=== PATIENT | female | born 1975 | race Two or more races ===

== ENCOUNTER 2020-01-17 19:55 | Emergency (ER) | payer MEDICAID, OTHER ==
[~2020-01-17] VITALS: Ht 165.1 cm; Wt 77.1 kg
--- NOTE | 2020-01-17 20:05 | NUR ---
URINE COLLECTED AND SENT TO LAB
--- NOTE | 2020-01-17 20:21 | NUR ---
SERVICE LEARNING COORDINATOR AT BEDSIDE FOR BLOOD DRAW
--- NOTE | 2020-01-17 20:27 | NUR ---
US RAVEN DIA, IS AT THE BEDSIDE.
[2020-01-17 20:28] LABS: EOSINOPHILS % (AUTO) 1.7 % (0.0-6.0); HEMATOCRIT 33 % (33-45); HEMOGLOBIN 10.9 g/dL (11.5-14.8); LYMPHOCYTES # (AUTO) 2.1 /CMM (0.8-4.8); LYMPHOCYTES % (AUTO) 40.5 % (20.0-44.0); MEAN CORPUSCULAR HGB CONC 33 g/dl (31.0-36.0); MEAN CORPUSCULAR VOLUME 77 fL (82-100); MONOCYTES # (AUTO) 0.5 /CMM (0.1-1.30); MONOCYTES % (AUTO) 9.3 % (2.0-12.0); NEUTROPHILS # (AUTO) 2.5 /CMM (1.8-8.9); NEUTROPHILS % (AUTO) 48.5 % (43.0-81.0); PLATELET COUNT (AUTO) 129 /CMM (150-450); RED BLOOD CELL COUNT(AUTO) 4.36 MIL/uL (4.0-5.2); WHITE BLOOD COUNT (AUTO) 5.1 K/uL (4.3-11.0)
[2020-01-17 20:29] LABS: APPEARANCE,URINE Clear (CLEAR); BILIRUBIN,URINE Negative (NEGATIVE); BLOOD, URINE Large Ery/uL (NEGATIVE); COLOR,URINE Pink (YELLOW); KETONES,URINE Negative (NEGATIVE); LEUKOCYTE ESTERASE ,URINE Negative (NEGATIVE); NITRITE, URINE Negative (NEGATIVE); PROTEIN,URINE Negative (NEGATIVE); UGLUCOSE Negative (NEGATIVE); UROBILINOGEN,URINE 0.2 EU/dL (0.2)
[2020-01-17 20:40] LABS: BACTERIA,URINE Rare /HPF (None Seen); RBC,URINE 21-50 /HPF (0-2); SQUAMOUS EPITHELIAL CELL,UR Few /HPF (None Seen); WBC,URINE NONE SEEN /HPF (0-3)
--- NOTE | 2020-01-17 20:44 | NUR ---
US IS FINISHED.
--- NOTE | 2020-01-17 21:39 | NUR ---
DR LOO IS AT THE BEDSIDE.
[2020-01-17 21:50] VITALS: BP 148/87
== END 2020-01-17 21:50 | disposition home or self-care (01) ==
LOC: ER 19:58
DX: N93.8 Other specified abnormal uterine and vaginal bleeding (principal); Z98.890 Other specified postprocedural states
CPT/HCPCS: 36415; 76856-TC; 81000-TC; 84702-TC; 84703-TC; 85025-TC

== ENCOUNTER 2020-11-20 20:32 | Emergency (ER) | payer OTHER ==
[~2020-11-20] VITALS: Ht 165.1 cm; Wt 72.6 kg
--- NOTE | 2020-11-20 20:35 | NUR ---
CITLALY C/O VAGINAL BLEEDING X1 MONTH. PT STATES SHE IS CURRENTLY TAKING IRON MEDICATION. PT STATES SHE USES APPROX 1 VAGINAL PAD PER 1-2HR . PT AAOX4. AMBULATORY WITH STEADY GAIT. VITAL SIGNS STABLE. RESPIRATIONS EVEN AND UNLABORED. NO ACUTE DISTRESS NOTED AT THIS TIME. WILL CONTINUE TO MONITOR
--- NOTE | 2020-11-20 21:16 | NUR ---
ULTRASOUND AT BEDSIDE
[2020-11-20 21:28] LABS: BILIRUBIN,URINE NEGATIVE (NEGATIVE); COLOR,URINE RED (YELLOW); LEUKOCYTE ESTERASE ,URINE NEGATIVE (NEGATIVE); NITRITE, URINE NEGATIVE (NEGATIVE); PH,URINE 6.5 (5.0-8.0); PROTEIN,URINE >=300 mg/dl (NEGATIVE); UGLUCOSE NEGATIVE (NEGATIVE); UROBILINOGEN,URINE 0.2 EU/dL (0.2)
[2020-11-20] MEDS ORDERED: IV NS 0.9% 1,000 ML BAG IV ONE (21:30)
[2020-11-20 21:40] LABS: BASOPHILS % (AUTO) 0.5 % (0.0-2.0); EOSINOPHILS % (AUTO) 3.5 % (0.0-6.0); HEMATOCRIT 31 % (33-45); HEMOGLOBIN 10.3 g/dL (11.5-14.8); LYMPHOCYTES # (AUTO) 1.3 /CMM (0.8-4.8); LYMPHOCYTES % (AUTO) 29.9 % (20.0-44.0); MEAN CORPUSCULAR HGB CONC 34 g/dl (31.0-36.0); MEAN CORPUSCULAR VOLUME 87 fL (82-100); MONOCYTES # (AUTO) 0.4 /CMM (0.1-1.30); MONOCYTES % (AUTO) 7.8 % (2.0-12.0); NEUTROPHILS # (AUTO) 2.6 /CMM (1.8-8.9); NEUTROPHILS % (AUTO) 58.3 % (43.0-81.0); PLATELET COUNT (AUTO) 123 /CMM (150-450); RED BLOOD CELL COUNT(AUTO) 3.52 MIL/uL (4.0-5.2); WHITE BLOOD COUNT (AUTO) 4.5 K/uL (4.3-11.0)
[2020-11-20 21:46] LABS: CALCIUM, SERUM 8.4 mg/dL (8.5-10.1); CREATININE 0.6 mg/dL (0.6-1.3); POTASSIUM 3.5 mmol/L (3.5-5.1)
[2020-11-20 21:47] LABS: BACTERIA,URINE Few /HPF (None Seen); RBC,URINE TOO NUMEROUS TO COUN /HPF (0-2); SQUAMOUS EPITHELIAL CELL,UR Few /HPF (None Seen); WBC,URINE 0-2 /HPF (0-3)
[2020-11-20 21:52] LABS: ALBUMIN 3.2 g/dL (3.4-5.0); BILIRUBIN,TOTAL 0.2 mg/dL (0.2-1.0); TOTAL PROTEIN, SERUM 6.5 g/dL (6.4-8.2)
[2020-11-20] MEDS ORDERED: ACET-2605 PO (22:08)
--- NOTE | 2020-11-20 22:41 | NUR ---
Patient discharged to home in stable condition. Written and verbal after care instructions given. Patient verbalizes understanding of instruction.IV removed. Catheter intact and site benign. Pressure and 4x4 applied to site. No bleeding noted. Pt ambulatory with a steady gait
[2020-11-20 22:42] VITALS: BP 118/57
== END 2020-11-20 22:41 | disposition home or self-care (01) ==
LOC: ER 20:37
DX: N93.9 Abnormal uterine and vaginal bleeding, unspecified (principal); D64.9 Anemia, unspecified; Z98.890 Other specified postprocedural states
CPT/HCPCS: 36415; 76856; 80048; 80076; 81001; 84703; 85025; 85730; 86850; 99284; J7030

== ENCOUNTER 2021-09-23 00:07 | Emergency (ER) | payer OTHER ==
[~2021-09-23] VITALS: Ht 165.1 cm; Wt 72.6 kg
[~2021-09-23 00:07] MED LIST: ACET-2605 PO
[2021-09-23 00:29] VITALS: BP 136/86
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
--- NOTE | 2021-09-23 00:44 | NUR ---
Gisselle damon in [facility] - 09/23/21 at 0058 by LYDIA KESHAV AT BEDSIDE
[2021-09-23] MEDS ORDERED: ACET-2605 PO (00:58)
[2021-09-23] MEDS ORDERED: ACETAMINOPHEN 325 MG TABLET PO ONE (01:00)
[2021-09-23] MEDS ORDERED: ACETAMINOPHEN 325 MG TABLET ONE (01:01)
--- NOTE | 2021-09-23 01:06 | NUR ---
Patient discharged to home in stable condition. Written and verbal after care instructions given. Patient verbalizes understanding of instruction.
== END 2021-09-23 01:07 | disposition home or self-care (01) ==
LOC: ER 00:09
DX: S09.93XA Unspecified injury of face, initial encounter (principal); J45.909 Unspecified asthma, uncomplicated; Z98.890 Other specified postprocedural states; Y08.89XA Assault by other specified means, initial encounter; Y93.89 Activity, other specified; Y92.89 Other specified places as the place of occurrence of the external cause; Y99.8 Other external cause status

== ENCOUNTER 2022-08-06 09:04 | Emergency (ER) | payer OTHER ==
[~2022-08-06] VITALS: Ht 165.1 cm; Wt 79.4 kg
--- NOTE | 2022-08-06 09:10 | NUR ---
RECEIVED PT 46 YRS FEMALE SERAFINING TO ED C/O BREAST IMPLATE OPEN AND REDNESS
--- NOTE | 2022-08-06 09:15 | NUR ---
Wound in healing process
--- NOTE | 2022-08-06 09:15 | NUR ---
INcistion no redness no drange on site
[2022-08-06] MEDS ORDERED: OXYC-128 PO (09:45)
--- NOTE | 2022-08-06 09:50 | NUR ---
SEEN BY DR. HENSON
--- NOTE | 2022-08-06 10:08 | NUR ---
Patient discharged to home in stable condition. Written and verbal after care instructions given. Patient verbalizes understanding of instruction.
[2022-08-06 10:18] VITALS: BP 119/68
== END 2022-08-06 10:19 | disposition home or self-care (01) ==
LOC: ER 09:11
DX: T81.30XA Disruption of wound, unspecified, initial encounter (principal); N64.4 Mastodynia; J45.909 Unspecified asthma, uncomplicated; Z79.899 Other long term (current) drug therapy